=== PATIENT | male | born 1960 | race Caucasian/White ===

== ENCOUNTER → 2017-11-22 | Outpatient (REF) | payer OTHER | LOC: M LAB REF 17:52 | DX: L02.212 Cutaneous abscess of back [any part, except buttock and flank] (principal) ==

== ENCOUNTER → 2018-07-28 | Outpatient (REF) | payer OTHER | LOC: M LAB REF 17:09 | PROVIDERS: ATTEND Podiatrist Foot & Ankle Surgery | DX: M67.471 Ganglion, right ankle and foot (principal) ==

== ENCOUNTER 2019-06-27 13:52 | Emergency (ER) | payer BC, OTHER ==
[~2019-06-27] VITALS: Ht 185.4 cm; Wt 204.5 kg
[2019-06-27] MEDS ORDERED: HYDR50TAB (14:22)
[2019-06-27] MEDS ORDERED: VITA200048 PO (14:22)
[2019-06-27] MEDS ORDERED: NS 1,000 ML IV SCH (14:35)
[2019-06-27] MEDS ORDERED: KETOROLAC 30 MG/ML 1ML VIAL IV ONE (14:45)
[2019-06-27] MEDS ORDERED: ONDANSETRON 4MG/2ML VIAL IV ONE (14:45)
[2019-06-27 14:55] LABS: BASO # 0.1 10^3/uL (0.0-0.2); BASO % 0.5 % (0.0-1.0); EOS # 0.3 10^3/uL (0.0-0.5); HEMATOCRIT 49.7 % (42.0-52.0); HEMOGLOBIN 16.9 g/dl (13.5-17.5); LYMPH # 0.9 10^3/uL (1.5-5.0); LYMPH % 9.1 % (24.0-44.0); MEAN CORPUSCULAR HEMOGLOBIN 31.8 pg (27.0-33.0); MEAN CORPUSCULAR VOLUME 93.4 fl (80.0-96.0); MONO # 0.8 10^3/uL (0.0-0.8); MONO % 8.5 % (0.0-5.0); NEUTROPHILS # 7.4 10^3/uL (1.5-8.5); NEUTROPHILS % 78.3 % (36.0-66.0); PLATELET COUNT, AUTOMATED 158 10^3/uL (150-450); RED BLOOD COUNT 5.32 10^6/uL (4.30-6.10); WHITE BLOOD COUNT 9.5 10^3/uL (4.0-10.0)
[2019-06-27 15:16] LABS: ALBUMIN 3.7 GM/DL (3.2-5.2); BILIRUBIN,DIRECT 0.2 MG/DL (0.0-0.2); BILIRUBIN,TOTAL 0.6 MG/DL (0.2-1.0); CALCIUM LEVEL 8.9 MG/DL (8.5-10.1); CREATININE FOR GFR 1.49 MG/DL (0.70-1.30); GLOMERULAR FILTRATION RATE 51.4 (>56); TOTAL PROTEIN 7.5 GM/DL (6.4-8.2)
[2019-06-27] MEDS ORDERED: ZOFR4TAB16 PO (15:24)
[2019-06-27] MEDS ORDERED: NORC1TAB7 PO (15:24)
[2019-06-27 15:42] LABS: INR 1.04; PROTHROMBIN TIME 13.3 SECONDS (11.8-14.0)
[2019-06-27 15:55] VITALS: BP 123/57
--- NOTE | 2019-06-27 22:48 | REP ---
REASON: Abdominal pain. PRIORS: None. The lack of intravenous contrast and oral bowel preparatory contrast significantly decreases the sensitivity of the exam. Patient has particularly left-sided flank pain. Lung bases are clear. There is left perinephric stranding and mild left-sided hydronephrosis. There is no definite ureterolith; however, there is marked spray artifact arising from bilateral hip prostheses in the pelvis. This precludes imaging of the distal ureter. Multiple attempts were made at reducing the artifact. It persists throughout all images. The right kidney and renal collecting system is within normal limits. There is diffuse low density seen throughout the hepatic parenchyma, consistent with fatty infiltration. The gallbladder, spleen, pancreas, and adrenal glands are unremarkable. The abdominal aorta and para-aortic regions are within normal limits. There is no free fluid or free air. The bowel loops are unremarkable. IMPRESSION: 1. Probable at least partially obstructing distal left ureterolith; however, it cannot be stated with certainty due to the artifact. 2. Fatty infiltration of the liver. Electronically Signed by Vivek Jesus DO 06/28/2019 08:26 A
[2019-07-14] MEDS ORDERED: FLOM0.4C39 PO (08:56)
[2019-07-14] MEDS ORDERED: METF10004 PO (08:56)
== END 2019-06-27 16:25 | disposition home or self-care (01) ==
LOC: M ED 13:52
DX: N23 Unspecified renal colic (principal); N20.1 Calculus of ureter; I10 Essential (primary) hypertension; Z79.899 Other long term (current) drug therapy; Z79.84 Long term (current) use of oral hypoglycemic drugs
CPT/HCPCS: 74176; 80048; 80076; 81001; 83690; 85025; 85610; 96361; 96374; 96375; 99284; J1885; J2405

== ENCOUNTER → 2019-07-05 | Outpatient (REF) | payer OTHER ==
[~2019-07-05] MED LIST: FLOM0.4C39 PO; HYDR50TAB; METF10004 PO; NORC1TAB7 PO; VITA200048 PO; ZOFR4TAB16 PO
[2019-07-14 18:07] LABS: Ca Ox Monohydrate 10 % (.); Size 2x2 mm (.); Uric Acid 90 % (.)
== END ==
LOC: M SMT 16:32
PROVIDERS: ATTEND Nurse Practitioner Family
DX: N20.0 Calculus of kidney (principal)

== ENCOUNTER → 2019-07-18 | Outpatient (CLI) | payer BC, OTHER | LOC: M LABSMTC 09:08 | PROVIDERS: ATTEND Anesthesiology | DX: Z01.818 Encounter for other preprocedural examination (principal); Z11.59 Encounter for screening for other viral diseases | CPT/HCPCS: C9803; U0003 ==

== ENCOUNTER 2019-07-21 08:55 | Day surgery (SDC) | payer BC, OTHER ==
[~2019-07-21] VITALS: Ht 185.4 cm; Wt 195.9 kg
[2019-07-21] MEDS ORDERED: LIDOCAINE 2% 100MG/5ML SDV (FOR ANES.) As Ordered ONE (09:23)
[2019-07-21] MEDS ORDERED: propofoL 200 MG/20 ML VIAL As Ordered ONE ×2 (09:23→10:10)
[2019-07-21] MEDS ORDERED: NS 1,000 ML IV ONE (10:15)
--- NOTE | 2019-07-21 10:24 | ROOR ---
Patient Name: Devyn Reed Procedure Date: 07/21/2019 9:44 AM Date of : 1960 Age: 59 Room: [facility] Gender: Male Note Status: Finalized Procedure: Colonoscopy Indications: Screening for colorectal malignant neoplasm Providers: Wilbert López MD Referring MD: Pam Cao MD Requesting Provider: Medicines: Monitored Anesthesia Care Complications: No immediate complications. Procedure: Pre-Anesthesia Assessment: - Prior to the procedure, a History and Physical was performed, and patient medications and allergies were reviewed. The patient is competent. The risks and benefits of the procedure and the sedation options and risks were discussed with the patient. All questions were answered and informed consent was obtained. Patient identification and proposed procedure were verified by the physician, the nurse and the construction helper in the endoscopy suite. Mental Status Examination: alert and oriented. Airway Examination: normal oropharyngeal airway and neck mobility. Respiratory Examination: clear to auscultation. CV Examination: normal. Prophylactic Antibiotics: The patient does not require prophylactic antibiotics. Prior Anticoagulants: The patient has taken no previous anticoagulant or antiplatelet agents. ASA Grade Assessment: III - A patient with severe systemic disease. After reviewing the risks and benefits, the patient was deemed in satisfactory condition to undergo the procedure. The anesthesia plan was to use monitored anesthesia care (MAC). Immediately prior to administration of medications, the patient was re-assessed for adequacy to receive sedatives. The heart rate, respiratory rate, oxygen saturations, blood pressure, adequacy of pulmonary ventilation, and response to care were monitored throughout the procedure. The physical status of the patient was re-assessed after the procedure. The Colonoscope was introduced through the anus and advanced to the cecum, identified by appendiceal orifice and ileocecal valve. The colonoscopy was technically difficult and complex due to the patient's body habitus. The patient tolerated the procedure well. The quality of the bowel preparation was good. Findings: Hemorrhoids were found on perianal exam. A few small-mouthed diverticula were found in the sigmoid colon. A 5 mm polyp was found in the descending colon. The polyp was sessile. The polyp was removed with a hot snare. Resection and retrieval were complete. Estimated blood loss: none. The retroflexed view of the distal rectum and anal verge was normal and showed no anal or rectal abnormalities. Impression: - Hemorrhoids found on perianal exam. - Diverticulosis in the sigmoid colon. - One 5 mm polyp in the descending colon, removed with a hot snare. Resected and retrieved. - The distal rectum and anal verge are normal on retroflexion view. Recommendation: - Discharge patient to home (ambulatory). - Telephone my office for pathology results in 1 week. Wilbert López MD Wilbert López MD 07/21/2019 10:23:42 AM Electronically signed by Wilbert López MD Number of Addenda: 0 Note Initiated On: 07/21/2019 9:44 AM Estimated Blood Loss: Estimated blood loss: none.
[2019-07-21 10:46] VITALS: BP 119/70
== END 2019-07-21 10:48 | disposition home or self-care (01) ==
LOC: M OPP 08:55
PROVIDERS: ATTEND Surgery
DX: Z12.11 Encounter for screening for malignant neoplasm of colon (principal); D12.4 Benign neoplasm of descending colon; K57.30 Diverticulosis of large intestine without perforation or abscess without bleeding; K64.9 Unspecified hemorrhoids; I10 Essential (primary) hypertension; E11.9 Type 2 diabetes mellitus without complications; G47.30 Sleep apnea, unspecified; Z79.84 Long term (current) use of oral hypoglycemic drugs; Z79.891 Long term (current) use of opiate analgesic; Z79.899 Other long term (current) drug therapy

== ENCOUNTER → 2019-07-30 | Outpatient (CLI) | payer BC, OTHER ==
--- NOTE | 2019-07-30 08:09 | REP ---
Clinical: History of hydronephrosis. Technique: Real time webb scale and color ultrasound examination using curved array transducer. Findings: Bilateral kidneys are normal in contour, size, echogenicity and reniform shape without hydronephrosis, nephrolithiasis, cystic or renal mass lesion. No perinephric fluid collection. Right kidney measures 12.8 x 7.6 x 5.8 cm. Left kidney measures 15.1 x 8.2 x 7.6 cm. Impression: Normal renal ultrasound. Electronically Signed by Aidan Rojo MD 07/30/2019 08:00 A
--- NOTE | 2019-07-30 08:11 | REP ---
Clinical: History of hydronephrosis. Technique: Real time webb scale and color evaluation using curved array transducer. Findings: The bladder is relatively normal in appearance without significant wall thickening or mass lesion. Bilateral ureteral jets are identified. Prevoid bladder measured 9.1 x 7.0 x 4.5 cm (187 ml). Postvoid bladder images demonstrate complete emptying. Impression: Normal bladder ultrasound. Electronically Signed by Aidan Rojo MD 07/30/2019 08:02 A
== END ==
LOC: M RAD 07:11
PROVIDERS: ATTEND Nurse Practitioner Family
DX: N13.30 Unspecified hydronephrosis (principal)

== ENCOUNTER → 2019-08-04 | Outpatient (REF) | payer BC, OTHER ==
[2019-08-17 10:07] LABS: Amm Acid Urate 80 % (.); Size 7x3 mm (.); Uric Acid 20 % (.)
== END ==
LOC: M SMT 16:41
PROVIDERS: ATTEND Nurse Practitioner Family
DX: N20.0 Calculus of kidney (principal)

== ENCOUNTER → 2019-10-17 | Outpatient (CLI) | payer SELFPAY | LOC: M LABSMTC 09:28 | PROVIDERS: ATTEND Pediatrics | DX: Z20.828 Contact with and (suspected) exposure to other viral communicable diseases (principal) ==

== ENCOUNTER → 2020-01-21 | Outpatient (CLI) | payer BC, OTHER ==
--- NOTE | 2020-01-21 10:52 | REP ---
INDICATION: KIDNEY STONE. COMPARISON: 07/30/2019 TECHNIQUE: Renal ultrasound and transvesical urinary bladder ultrasound. FINDINGS: Multiple ultrasonographic images of the right kidney show the right kidney to measure 12.9 x 6.6 x 5.8 cm. The renal cortical echotexture is unremarkable. There are no masses. There is good corticomedullary differentiation. There is no hydronephrosis. There are no perinephric fluid collections. Multiple ultrasonographic images of the left kidney show the left kidney to measure 13.5 x 5.2 x 7.4 cm. The renal cortical echotexture is unremarkable. There are no masses. There is good corticomedullary differentiation. There is no hydronephrosis. There are no perinephric fluid collections. Urinary bladder ultrasonography shows uro jet phenomena at the UV junction bilaterally. The prevoid urinary bladder volume calculation is 449 cc and the postvoid urinary bladder volume calculation is 52 cc. This renders a 12% postvoid residual. No urinary bladder abnormalities were noted. IMPRESSION: Unremarkable renal and urinary bladder ultrasonography. <Electronically signed by Vivek Jesus > 01/21/20 1049
== END ==
LOC: M RAD 09:38
PROVIDERS: ATTEND Nurse Practitioner Family
DX: Z87.442 Personal history of urinary calculi (principal)

== ENCOUNTER → 2020-05-30 | Outpatient (REF) | payer OTHER | LOC: M LAB REF 17:14 | PROVIDERS: ATTEND Dermatology | DX: L72.0 Epidermal cyst (principal) ==

== ENCOUNTER → 2020-06-23 | Outpatient (REF) | payer OTHER ==
[2020-06-23 20:49] LABS: BACTERIA, URINE AUTO NEGATIVE (NEGATIVE); MUCUS, URINE SMALL (NEGATIVE); RBC, URINE AUTO 0 /HPF (0-3); SQUAMOUS EPITHELIAL CELL UR AU 0 /HPF (0-6); WBC, URINE AUTO 0 /HPF (0-3)
== END ==
LOC: M WUC 20:26
PROVIDERS: ATTEND Nurse Practitioner Family
DX: R10.31 Right lower quadrant pain (principal)

== ENCOUNTER → 2020-07-03 | Outpatient (REF) | payer OTHER | LOC: M SMT 16:57 | PROVIDERS: ATTEND Nurse Practitioner Women's Health | DX: N20.0 Calculus of kidney (principal) ==

== ENCOUNTER → 2021-02-12 | Outpatient (CLI) | payer BC, OTHER | LOC: M RAD 12:44 | PROVIDERS: ATTEND Nurse Practitioner Women's Health | DX: N20.0 Calculus of kidney (principal) ==

== ENCOUNTER → 2021-08-17 | Outpatient (CLI) | payer BC, OTHER | LOC: M RAD 11:07 | PROVIDERS: ATTEND Physician Assistant | DX: N20.0 Calculus of kidney (principal) ==

== ENCOUNTER 2021-11-19 08:03 | Emergency (ER) | payer BC, OTHER ==
[~2021-11-19] VITALS: Ht 185.4 cm; Wt 185.0 kg
[2021-11-19] MEDS ORDERED: POTA4.25 (08:16)
[2021-11-19] MEDS ORDERED: METF-838 (08:16)
[2021-11-19] MEDS ORDERED: KETOROLAC 30 MG/ML 1ML VIAL IV ONE (09:00)
[2021-11-19] MEDS ORDERED: LIDOCAINE 5% (LIDODERM) PATCH TD ONE ×2 (09:00→10:55)
[2021-11-19 09:41] LABS: BASO # 0.1 10^3/uL (0.0-0.2); BASO % 0.9 % (0.0-1.0); EOS # 0.9 10^3/uL (0.0-0.5); HEMATOCRIT 51.5 % (42.0-52.0); HEMOGLOBIN 16.7 g/dl (13.5-17.5); LYMPH # 1.3 10^3/uL (1.5-5.0); LYMPH % 16.8 % (24.0-44.0); MEAN CORPUSCULAR HEMOGLOBIN 30.9 pg (27.0-33.0); MEAN CORPUSCULAR HGB CONC 32.4 g/dl (32.0-36.5); MEAN CORPUSCULAR VOLUME 95.2 fl (80.0-96.0); MONO # 0.5 10^3/uL (0.0-0.8); MONO % 6.5 % (2.0-8.0); NEUTROPHILS # 5.1 10^3/uL (1.5-8.5); NEUTROPHILS % 64.3 % (36.0-66.0); PLATELET COUNT, AUTOMATED 196 10^3/uL (150-450); RED BLOOD COUNT 5.41 10^6/uL (4.30-6.10)
[2021-11-19 10:39] LABS: BLOOD UREA NITROGEN 14 MG/DL (7-18); CALCIUM LEVEL 8.2 MG/DL (8.8-10.2); CARBON DIOXIDE LEVEL 29 MEQ/L (21-32); CHLORIDE LEVEL 110 MEQ/L (98-107); GLOMERULAR FILTRATION RATE > 60.0 (>49); GLUCOSE, FASTING 120 MG/DL (70-100); POTASSIUM SERUM 3.7 MEQ/L (3.5-5.1); SODIUM LEVEL 142 MEQ/L (136-145)
[2021-11-19] MEDS ORDERED: METH-1165 PO (10:53)
[2021-11-19] MEDS ORDERED: ASPE4PAD TOP (10:53)
[2021-11-19] MEDS ORDERED: methocarbamoL 750 MG TAB PO ONE (10:55)
[2021-11-19 11:37] VITALS: BP 152/70
[2021-11-19] MEDS ORDERED: **NOTE PATIENT COMMENT** MISC XX ONE (21:00)
[2021-11-19] MEDS ORDERED: **NOTE PATIENT COMMENT** MISC XX SCH (21:00)
== END 2021-11-19 11:43 | disposition home or self-care (01) ==
LOC: M ED 08:03
DX: M54.50 Low back pain, unspecified (principal)
CPT/HCPCS: 74176; 80047; 80048; 85025; 96374; 99284; J1885

== ENCOUNTER → 2021-11-21 | Outpatient (REF) | payer OTHER, BC ==
[~2021-11-21] MED LIST changes: +ASPE4PAD TOP; +METF-838; +METH-1165 PO; +POTA4.25
[2021-11-21 17:41] LABS: MALB URINE SIEMENS < 5.0 MG/L; MAU/CREAT RATIO 10.2 MCG/MG (0.0-30.0)
== END ==
LOC: M LAB REF 15:58
PROVIDERS: ATTEND Nurse Practitioner Family
DX: E11.40 Type 2 diabetes mellitus with diabetic neuropathy, unspecified (principal)

== ENCOUNTER → 2022-04-09 | Outpatient (CLI) | payer BC, OTHER | LOC: M PLAIMG 14:00 | PROVIDERS: ATTEND Nurse Practitioner Family | DX: R91.8 Other nonspecific abnormal finding of lung field (principal) ==

== ENCOUNTER → 2022-07-29 | Outpatient (CLI) | payer BC, OTHER | LOC: M RAD 10:43 | PROVIDERS: ATTEND Physician Assistant | DX: Z87.442 Personal history of urinary calculi (principal) ==

== ENCOUNTER → 2023-09-26 | Outpatient (CLI) | payer BC | LOC: M RAD 14:18 | PROVIDERS: ATTEND Physician Assistant | DX: Z87.442 Personal history of urinary calculi (principal) ==

== ENCOUNTER → 2024-06-07 | Outpatient (REF) | payer BC ==
[~2024-06-07] MED LIST changes: +ALEV220T22 PO; +DULO1CAP4 PO; +GABA-1172 PO; -HYDR50TAB; +HYDR50TAB PO; -POTA4.25; +POTA4.25 PO; +ROSU5TAB49 PO; +SEMA1PEN2 SC
== END ==
LOC: M SFHCDERM 17:33
PROVIDERS: ATTEND Physician Assistant
DX: D36.11 Benign neoplasm of peripheral nerves and autonomic nervous system of face, head, and neck (principal)

== ENCOUNTER 2024-06-18 06:40 | Day surgery (SDC) | payer BC ==
[~2024-06-18] VITALS: Ht 185.4 cm; Wt 168.7 kg
[~2024-06-18 06:40] MED LIST changes: -FLOM0.4C39 PO; +TAMS-18 PO
[2024-06-18] MEDS ORDERED: propofoL 200 MG/20 ML VIAL As Ordered ONE (06:56)
[2024-06-18] MEDS ORDERED: LIDOCAINE 2% 100MG/5ML SDV (FOR ANES.) As Ordered ONE (06:56)
[2024-06-18 08:03] VITALS: TEMP 97.9
[2024-06-18 08:19] VITALS: BP 111/53; O2SAT 95
== END 2024-06-18 08:36 | disposition home or self-care (01) ==
LOC: M OPP 06:40
PROVIDERS: ATTEND Surgery
DX: Z12.11 Encounter for screening for malignant neoplasm of colon (principal); D17.5 Benign lipomatous neoplasm of intra-abdominal organs; Z86.0100 Personal history of colon polyps, unspecified; G47.30 Sleep apnea, unspecified; Z79.85 Long-term (current) use of injectable non-insulin antidiabetic drugs; Z79.899 Other long term (current) drug therapy

== ENCOUNTER → 2024-10-12 | Outpatient (CLI) | payer BC | LOC: M RAD 09:40 | PROVIDERS: ATTEND Physician Assistant | DX: N20.0 Calculus of kidney (principal) ==

== ENCOUNTER → 2024-11-11 | Outpatient (CLI) | payer BC | LOC: M PLAIMG 09:23 | PROVIDERS: ATTEND Registered Nurse | DX: M25.571 Pain in right ankle and joints of right foot (principal) ==